=== PATIENT | female | born 1955 | race Caucasian/White ===

== ENCOUNTER 2024-11-23 10:02 | Inpatient (IN) | payer MEDICARE, BC ==
[~2024-11-23] VITALS: Ht 167.6 cm; Wt 57.4 kg
[2024-11-23] MEDS ORDERED: ONDANSETRON HCL/PF 4 MG/2 ML VIAL ONE (10:27)
[2024-11-23] MEDS ORDERED: MORPHINE SULFATE INJ 4 MG/ML DISP.SYRIN ONE (10:27)
[2024-11-23 10:32] LABS: BASOPHILS % (AUTO) 0.4 % (0.0-2.0); EOSINOPHILS % (AUTO) 0.1 % (0.0-6.0); HEMATOCRIT 44 % (33-45); LYMPHOCYTES # (AUTO) 0.8 K/uL (0.8-4.8); LYMPHOCYTES % (AUTO) 6.3 % (20.0-44.0); MEAN CORPUSCULAR HEMOGLOBIN 32 PG (26.0-33.0); MEAN CORPUSCULAR HGB CONC 34 g/dl (31.0-36.0); MEAN CORPUSCULAR VOLUME 95 fL (82-100); MONOCYTES # (AUTO) 0.3 K/uL (0.1-1.30); MONOCYTES % (AUTO) 2.2 % (2.0-12.0); PLATELET COUNT (AUTO) 267 K/uL (150-450); RED BLOOD CELL COUNT(AUTO) 4.71 MIL/uL (4.0-5.2)
[2024-11-23] MEDS: ONDANSETRON HCL/PF 4 MG/2 ML VIAL IVP ONE (10:32)
[2024-11-23] MEDS: MORPHINE SULFATE INJ 2 MG/ML DISP.SYRIN IV ONE (10:32)
[2024-11-23] MEDS: IV NS 0.9% 1,000 ML BAG IV ONE (10:32)
[2024-11-23 10:48] LABS: ALBUMIN 4.5 g/dL (3.4-5.0); BILIRUBIN,DIRECT 0.2 mg/dL (0.0-0.2); BILIRUBIN,TOTAL 0.5 mg/dL (0.2-1.0); CALCIUM, SERUM 10.2 mg/dL (8.5-10.1); POTASSIUM 4.5 mmol/L (3.5-5.1); TOTAL PROTEIN, SERUM 8.1 g/dL (6.4-8.2)
[2024-11-23] MEDS ORDERED: HYDROMORPHONE 1 MG/1 ML DISP.SYRIN ONE (11:13)
[2024-11-23] MEDS: HYDROMORPHONE 1 MG/1 ML DISP.SYRIN IV ONE (11:29)
[2024-11-23] MEDS ORDERED: EMGALITY SQ (12:49)
[2024-11-23] MEDS ORDERED: SUMA100T16 PO (12:49)
[2024-11-23] MEDS ORDERED: METAMUCIL PO (12:49)
[2024-11-23] MEDS ORDERED: FINA5TAB11 PO (12:49)
[2024-11-23] MEDS ORDERED: REPATHA SQ (12:49)
[2024-11-23] MEDS ORDERED: SPIR50TA PO (12:49)
[2024-11-23] MEDS ORDERED: SENN-18 PO (12:49)
[2024-11-23] MEDS ORDERED: ONDANSETRON HCL/PF 4 MG/2 ML VIAL IVP PRN (13:00)
[2024-11-23] MEDS ORDERED: Z GUARD REMEDY 4 OZ OINT TP PRN (13:00)
[2024-11-23] MEDS ORDERED: MAGNESIUM HYDROXIDE 30 ML UDC PO PRN (13:00)
[2024-11-23] MEDS ORDERED: MAG HYDROX/AL HYDROX/SIMETH 30 ML UDC PO PRN (13:00)
[2024-11-23 13:40] VITALS: BP 101/66; TEMP 98.2; O2SAT 99
[2024-11-23] MEDS: IV NS 0.9% 1,000 ML IV PRN (13:55)
[2024-11-23] MEDS: MORPHINE SULFATE INJ 2 MG/ML DISP.SYRIN IV PRN (15:05)
[2024-11-23 16:00] VITALS: BP 99/62; TEMP 98.6; O2SAT 97
[2024-11-23 20:00] VITALS: BP 106/64; TEMP 98.4; O2SAT 100
[2024-11-23 20:29] VITALS: BP 106/64; TEMP 98.4; O2SAT 100
[2024-11-24] MEDS: HYDROMORPHONE 1 MG/1 ML DISP.SYRIN IV PRN ×2 (00:31→12:58)
[2024-11-24] MEDS: ONDANSETRON HCL/PF 4 MG/2 ML VIAL IVP PRN (00:36)
[2024-11-24 06:52] LABS: BASOPHILS % (AUTO) 0.2 % (0.0-2.0); EOSINOPHILS # (AUTO) 0.1 K/uL (0.0-0.7); EOSINOPHILS % (AUTO) 0.7 % (0.0-6.0); HEMATOCRIT 40 % (33-45); HEMOGLOBIN 13.4 g/dL (11.5-14.8); LYMPHOCYTES # (AUTO) 1.1 K/uL (0.8-4.8); LYMPHOCYTES % (AUTO) 13.7 % (20.0-44.0); MEAN CORPUSCULAR HEMOGLOBIN 32 PG (26.0-33.0); MEAN CORPUSCULAR HGB CONC 33 g/dl (31.0-36.0); MEAN CORPUSCULAR VOLUME 96 fL (82-100); MONOCYTES # (AUTO) 0.8 K/uL (0.1-1.30); MONOCYTES % (AUTO) 10.5 % (2.0-12.0); NEUTROPHILS # (AUTO) 5.9 K/uL (1.8-8.9); NEUTROPHILS % (AUTO) 74.9 % (43.0-81.0); PLATELET COUNT (AUTO) 236 K/uL (150-450); RED BLOOD CELL COUNT(AUTO) 4.21 MIL/uL (4.0-5.2); RED CELL DISTRIBUTION WIDTH 13.1 % (11.5-15.0); WHITE BLOOD COUNT (AUTO) 7.8 K/uL (4.3-11.0)
[2024-11-24 07:19] LABS: CREATININE 0.9 mg/dL (0.6-1.3); POTASSIUM 4.1 mmol/L (3.5-5.1)
[2024-11-24 07:30] VITALS: BP 114/67; TEMP 98.1; O2SAT 98
[2024-11-24] MEDS ORDERED: SUMATRIPTAN SUCCINATE 100 MG TABLET PO PRN (07:30)
[2024-11-24] MEDS ORDERED: DIATR MEGLU/DIATRIZOATE SODIUM 120 ML BOTTLE (GASTROGRAPHIN) ONE (09:26)
[2024-11-24 16:29] VITALS: BP 127/81; TEMP 97.3; O2SAT 90
[2024-11-24 20:00] VITALS: BP 122/67; TEMP 98.6; O2SAT 97
[2024-11-25 07:30] VITALS: BP 130/87; TEMP 97.7; O2SAT 99
[2024-11-25] MEDS: HYDROMORPHONE 1 MG/1 ML DISP.SYRIN IV PRN (08:23)
[2024-11-25 10:49] LABS: INR 1.06 (0.91-1.10); PROTHROMBIN TIME 11.2 SECS (9.2-11.1)
[2024-11-25] MEDS ORDERED: BUPIVACAINE MPF 0.5% W/EPI INJ 30 ML VIAL ONE (10:50)
[2024-11-25] MEDS ORDERED: ANESTHESIA TRAY IN PYXIS 1 EA TRAY MC ONE (10:50)
[2024-11-25] MEDS ORDERED: LIDOCAINE 1%-EPI 1:100,000 20 ML VIAL ONE (10:50)
[2024-11-25] MEDS ORDERED: BUPIVACAINE 0.5 % PF 150 MG/30 ML VIAL ONE (10:50)
[2024-11-25] MEDS ORDERED: LIDOCAINE HCL/MPF 1% 30 ML VIAL IJ ONE (10:50)
[2024-11-25 11:32] LABS: CALCIUM, SERUM 9.3 mg/dL (8.5-10.1); CREATININE 0.9 mg/dL (0.6-1.3); POTASSIUM 3.8 mmol/L (3.5-5.1)
[2024-11-25] MEDS ORDERED: METRONIDAZOLE 500MG/ NS 100ML 0 ML IV ONE (12:13)
[2024-11-25] MEDS ORDERED: LIDOCAINE 2% JEL UROJET 10 ML MM ONE (12:13)
[2024-11-25] MEDS ORDERED: ROPIVACAINE HCL 0.5% 5 MG/ML 30ML VIAL ONE (12:13)
[2024-11-25] MEDS ORDERED: FAMOTIDINE/PF INJ 20 MG/2 ML VIAL IV ONE (12:14)
[2024-11-25] MEDS ORDERED: FENTANYL PF 100MCG/2ML AMPUL ONE (12:14)
[2024-11-25] MEDS ORDERED: MIDAZOLAM HCL 2 MG/2ML VIAL ONE (12:14)
[2024-11-25] MEDS ORDERED: KETAMINE HCL (500MG/10ML) 50 MG/ML VIAL ONE (12:14)
[2024-11-25] MEDS ORDERED: Magnesium 1 GM/2 ML VIAL ONE (12:14)
[2024-11-25] MEDS ORDERED: SCOPOLAMINE PATCH 1 MG/72HR TD ONE (12:46)
[2024-11-25 16:13] VITALS: BP 102/72; TEMP 97.9; O2SAT 98
[2024-11-25] MEDS: ACETAMINOPHEN 325 MG TABLET PO PRN (17:30)
[2024-11-25] MEDS ORDERED: CEFAZOLIN 1 GM VIAL IV ONE (18:26)
[2024-11-25] MEDS ORDERED: PROPOFOL 200 MG/20 ML VIAL IV ONE (18:27)
[2024-11-25] MEDS: MENTHOL/CETYLPYRD (CEPACOL) 1 LOZ LOZENGE PO PRN (19:59)
[2024-11-25 20:00] VITALS: BP 96/64; TEMP 99.4; O2SAT 97
[2024-11-25 21:33] VITALS: TEMP 98.8
[2024-11-26 07:04] LABS: CREATININE 0.8 mg/dL (0.6-1.3); POTASSIUM 3.4 mmol/L (3.5-5.1)
[2024-11-26 07:06] LABS: BASOPHILS % (AUTO) 0.7 % (0.0-2.0); EOSINOPHILS # (AUTO) 0.2 K/uL (0.0-0.7); EOSINOPHILS % (AUTO) 3.3 % (0.0-6.0); HEMATOCRIT 37 % (33-45); HEMOGLOBIN 12.5 g/dL (11.5-14.8); LYMPHOCYTES # (AUTO) 1.2 K/uL (0.8-4.8); LYMPHOCYTES % (AUTO) 23.6 % (20.0-44.0); MEAN CORPUSCULAR HEMOGLOBIN 33 PG (26.0-33.0); MEAN CORPUSCULAR HGB CONC 34 g/dl (31.0-36.0); MEAN CORPUSCULAR VOLUME 96 fL (82-100); MONOCYTES # (AUTO) 0.5 K/uL (0.1-1.30); MONOCYTES % (AUTO) 11.2 % (2.0-12.0); NEUTROPHILS % (AUTO) 61.2 % (43.0-81.0); PLATELET COUNT (AUTO) 202 K/uL (150-450); RED BLOOD CELL COUNT(AUTO) 3.81 MIL/uL (4.0-5.2); RED CELL DISTRIBUTION WIDTH 12.8 % (11.5-15.0); WHITE BLOOD COUNT (AUTO) 4.9 K/uL (4.3-11.0)
[2024-11-26 08:22] VITALS: BP 88/60; TEMP 97.1; O2SAT 97
[2024-11-26] MEDS: POTASSIUM CHLORIDE 20 MEQ POWDER PACKET PO SCH (11:03)
== END 2024-11-26 15:21 | disposition home or self-care (01) | DRG 390 ==
LOC: ER 10:09 → MED 12:51
PROVIDERS: ADMIT Internal Medicine; ATTEND Internal Medicine
DX: K56.609 Unspecified intestinal obstruction, unspecified as to partial versus complete obstruction (principal); G43.909 Migraine, unspecified, not intractable, without status migrainosus; Z90.49 Acquired absence of other specified parts of digestive tract; E78.5 Hyperlipidemia, unspecified; Z79.899 Other long term (current) drug therapy; R79.89 Other specified abnormal findings of blood chemistry
CPT/HCPCS: 36415; 71045-TC; 74018; 74250-TC; 80048-TC; 80076-TC; 82962-TC; 83605-TC; 83690-TC; 85025-TC; 85610-TC; 85730-TC; 86850-TC; A4223; G0378; J0690; J1171; J1308; J2250; J2270; J2405; J2704; J2795; J3010; J3475; J3490; J7030; Q9963